=== PATIENT | male | born 1995 | race Asian ===

== ENCOUNTER 2019-02-06 15:07 | Emergency (ER) | payer OTHER ==
[~2019-02-06] VITALS: Ht 172.7 cm; Wt 73.1 kg
--- NOTE | 2019-02-06 15:28 | NUR ---
Dr. Castillo at bedside evaluating patient, patient does not appear to be in acute distress at this time.
[2019-02-06] MEDS ORDERED: SODIUM CHLORIDE FLUSH 10ML SYR IVF ONE (15:30)
[2019-02-06 15:38] LABS: BASOPHILS # (AUTO) 0.02 x10^3/uL (0-0.1); BASOPHILS % (AUTO) 0 % (0-1); EOSINOPHILS # (AUTO) 0.07 x10^3/uL (0-0.4); EOSINOPHILS % (AUTO) 1 % (1-7); LYMPHOCYTES # (AUTO) 1.45 x10^3/uL (1-3.4); LYMPHOCYTES % (AUTO) 23 % (22-44); MD NO; MEAN CORPUSCULAR VOLUME 85.2 fL (81-97); MEAN PLATELET VOLUME 7.5 fL (7.4-10.4); MONOCYTES # (AUTO) 0.36 x10^3/uL (0.2-0.8); MONOCYTES % (AUTO) 6 % (2-9); NEUTROPHILS # (AUTO) 4.29 x10^3/uL (1.8-6.8); NEUTROPHILS % (AUTO) 69 % (42-75); PLATELET COUNT 335 x10^3/uL (130-400); RED BLOOD COUNT 5.64 x10^6/uL (4.38-5.82); RED CELL DISTRIBUTION WIDTH 14.9 % (9.4-14.8)
[2019-02-06 15:44] LABS: ALANINE AMINOTRANSFERASE 27 U/L (12-78); ALBUMIN 4.3 g/dL (3.4-5.0); ANION GAP 7 mmol/L (5-15); CALCIUM 9.3 mg/dL (8.5-10.1); CHLORIDE 111 mmol/L (98-107); CREATININE 1.21 mg/dL (0.7-1.3)
[2019-02-06 15:47] LABS: ALKALINE PHOSPHATASE 81 U/L (45-117); BILIRUBIN,TOTAL 0.7 mg/dL (0.2-1.0); TOTAL PROTEIN 8.7 g/dL (6.4-8.2)
--- NOTE | 2019-02-06 15:56 | NUR ---
Patient transported to interventional radiology for chest tube placement Addendum: 02/06/19 at 1557 by ARACELI Patient speaking in full sentences, reports shortness of breath unchanged.
[2019-02-06] MEDS ORDERED: LIDOCAINE-MPF 1%, 5ML ONE (15:58)
[2019-02-06] MEDS ORDERED: FENTANYL PF 100 MCG/2ML ONE (15:59)
--- NOTE | 2019-02-06 16:43 | NUR ---
Patient returned from interventional radiology at this time, chest tube in place.
[2019-02-06 16:49] VITALS: BP 132/76
--- NOTE | 2019-02-06 17:32 | NUR ---
PT RESTING ON GURNEY. RR EVEN AND UNLABORED. FAMILY AT BEDSIDE. PT DENIES PAIN OR NEEDS ATT. AWAITIN DISPO
== END 2019-02-06 17:53 | disposition home or self-care (01) ==
LOC: ED 17:47
DX: J93.83 Other pneumothorax (principal); R06.00 Dyspnea, unspecified
CPT/HCPCS: 32557; 36415; 80053; 85025; 93005; 99284; C1729; J3010

== ENCOUNTER 2019-02-11 10:39 | Inpatient (IN) | payer OTHER ==
[~2019-02-11] VITALS: Ht 172.7 cm; Wt 79.7 kg
--- NOTE | 2019-02-11 11:53 | NUR ---
WATER SEAL SUCTION APPLIED TO EXISTING CHEST TUBE SET TO 20 H20 SUCTION AIR BUBBLING NOTED IN THE FIRST 30 SECONDS THEN BUBLING STOPPED EVALED BY ERP
--- NOTE | 2019-02-11 12:18 | NUR ---
REPORT CALLED TO THE FLOOR
[2019-02-11 12:43] VITALS: BP 119/81
[2019-02-11] MEDS ORDERED: DOCUSATE 100 MG CAPSULE PO PRN (13:30)
[2019-02-11] MEDS ORDERED: ONDANSETRON ODT 4 MG PO PRN (13:30)
[2019-02-11] MEDS ORDERED: GUAIFENESIN/DM 200-20MG, 10ML UDC PO PRN (13:30)
[2019-02-11] MEDS ORDERED: ONDANSETRON 2MG/ML, 2ML IVPush PRN (13:30)
[2019-02-11] MEDS: LIDODERM 5% PATCH TD PRN (18:43)
[2019-02-11 19:49] VITALS: BP 104/70
[2019-02-11] MEDS: HYDROcodone/APAP 5/325 TABLET PO PRN (20:08)
[2019-02-12 03:24] VITALS: BP 108/71
[2019-02-12 06:57] VITALS: BP 114/70
[2019-02-12] MEDS: HYDROcodone/APAP 5/325 TABLET PO PRN ×2 (10:27→21:21)
[2019-02-12 13:20] VITALS: BP 107/66
[2019-02-12 19:58] VITALS: BP 120/71
[2019-02-12] MEDS: LIDODERM 5% PATCH TD PRN (21:05)
[2019-02-13 03:44] VITALS: BP 113/66
[2019-02-13 08:45] VITALS: BP 113/68
[2019-02-13] MEDS: HYDROcodone/APAP 5/325 TABLET PO PRN (08:51)
[2019-02-13 13:15] VITALS: BP 113/70
[2019-02-13 22:22] VITALS: BP 122/71
[2019-02-14 05:33] VITALS: BP 99/58
[2019-02-14 07:02] VITALS: BP 119/74
[2019-02-14] MEDS ORDERED: LIDO700A20 TD (09:57)
[2019-02-14] MEDS ORDERED: GUAI5SYR PO (09:57)
[2019-02-14 10:44] VITALS: BP 118/73
== END 2019-02-14 12:15 | disposition home or self-care (01) | DRG 201 ==
LOC: ED 11:06 → INTOOBSV 11:07 → EDIP 11:07 → OBSVTOIN 11:07 → ED 11:29 → 4NOR 12:10 → DCLOUNGE 02-14 12:01
PROVIDERS: ADMIT Internal Medicine; ATTEND Internal Medicine
PROC: 0WP9X0Z Removal of Drainage Device from Right Pleural Cavity, External Approach (ICD-10-PCS; principal; 2019-02-14)
DX: J93.83 Other pneumothorax (principal)
CPT/HCPCS: 71045; 99285; G0378

== ENCOUNTER → 2019-02-11 | Outpatient (CLI) | payer OTHER ==
[~2019-02-11] MED LIST: FENTANYL PF 100 MCG/2ML ONE; GUAI5SYR PO; LIDO700A20 TD; LIDOCAINE 1%, 20ML ONE
== END | disposition home or self-care (01) ==
LOC: RAD 02-09 09:26
PROVIDERS: ATTEND Radiology Diagnostic Radiology
DX: J93.9 Pneumothorax, unspecified (principal); F12.90 Cannabis use, unspecified, uncomplicated
CPT/HCPCS: 71045; 71046; J3010; J3490